=== PATIENT | female | born 1960 | race Caucasian/White ===

== ENCOUNTER 2017-11-13 22:20 | Emergency (ER) | payer MEDICAID ==
[~2017-11-13] VITALS: Ht 157.5 cm; Wt 69.9 kg
[2017-11-13 22:23] VITALS: BP_SYST 145
[2017-11-13] MEDS ORDERED: ASPIRIN 81 MG TAB.CHEW PO ONE (22:45)
[2017-11-13 23:08] LABS: INR 0.9 (0.8-1.2); PROTHROMBIN TIME 9.2 SECS (9.5-12.5)
[2017-11-13 23:09] LABS: BASOPHILS # (AUTO) 0.1 K/uL (0.0-0.2); BASOPHILS % (AUTO) 0.6 % (0.0-2.0); EOSINOPHILS # (AUTO) 0.4 K/uL (0.0-0.4); EOSINOPHILS % (AUTO) 4.9 % (0.0-4.0); HEMATOCRIT 40.1 % (36-48); HEMOGLOBIN 13.4 g/dL (12.0-16.0); LYMPHOCYTES % (AUTO) 48.7 % (20.5-51.5); MEAN CORPUSCULAR HEMOGLOBIN 32 pg (27-31); MEAN CORPUSCULAR HGB CONC 33 % (32-36); MEAN CORPUSCULAR VOLUME 96 fL (79.0-98.0); MONOCYTES # (AUTO) 0.7 K/uL (0.0-1.0); MONOCYTES % (AUTO) 7.9 % (1.7-9.3); NEUTROPHILS # (AUTO) 3.2 K/uL (1.8-7.7); NEUTROPHILS % (AUTO) 37.9 % (40.0-70.0); PLATELET COUNT (AUTO) 247 K/uL (130-430); RED BLOOD CELL COUNT(AUTO) 4.19 MIL/uL (4.2-6.2); RED CELL DISTRIBUTION WIDTH 11.6 % (9.0-15.0); WHITE BLOOD COUNT (AUTO) 8.4 K/uL (4.8-10.8)
[2017-11-13 23:11] LABS: CALCIUM 9.8 mg/dL (8.4-11.0); CREATININE 0.9 mg/dL (0.55-1.30); POTASSIUM 3.7 mmol/L (3.5-5.1)
[2017-11-13 23:15] LABS: ALBUMIN 4.5 g/dL (3.4-4.8); TOTAL BILIRUBIN 0.2 mg/dL (0.0-1.0)
[2017-11-13 23:28] LABS: BILIRUBIN,URINE NEGATIVE (NEGATIVE); BLOOD, URINE NEGATIVE (NEGATIVE); CLARITY/URINE CLEAR (CLEAR); COLOR,URINE YELLOW (YELLOW); GLUCOSE,URINE NEGATIVE (NEGATIVE); KETONES,URINE NEGATIVE (NEGATIVE); LEUKOCYTE ESTERASE ,URINE 1+ (NEGATIVE); NITRITE, URINE NEGATIVE (NEGATIVE); PROTEIN URINE NEGATIVE (NEGATIVE); UROBILINOGEN,URINE 0.2 (0.2-1.0)
[2017-11-13 23:33] LABS: BACTERIA,URINE FEW /HPF (None Seen); RBC,URINE 0-3 /HPF (0-3)
[2017-11-14] MEDS ORDERED: KETOROLAC TROMETHAMINE 30 MG VIAL IVP ONE (00:15)
[2017-11-14] MEDS ORDERED: SULFAMETHOXAZOLE/TRIMETHOPR DS 1 TABLET PO ONE (01:00)
[2017-11-14 01:21] VITALS: BP_SYST 105
== END 2017-11-14 01:21 | disposition home or self-care (01) ==
LOC: SED 22:20
DX: R07.89 Other chest pain (principal); N39.0 Urinary tract infection, site not specified; I10 Essential (primary) hypertension
CPT/HCPCS: 36415; 71045; 80053; 81000; 83880; 84484; 85025; 85610; 85730; 87086; 96374; 99285; J1885

== ENCOUNTER 2018-05-14 00:47 | Emergency (ER) | payer MEDICAID ==
[~2018-05-14] VITALS: Ht 157.5 cm; Wt 68.0 kg
[2018-05-14 01:00] VITALS: BP_SYST 116
--- NOTE | 2018-05-14 01:08 | NUR ---
Patient to ER bed 5 to gown for evaluation. Side rails up. Report given to Alla IRBY.
--- NOTE | 2018-05-14 01:10 | NUR ---
Pt is AAOx4 and ambulatory. Pt states that this evening she passed out, did not hit her head, but felt a little disoriented after this episode. Pt also c/o nausea and lightheadedness today and felt nauseous after taking trazadone this evening. Pt denies any pain or discomfort at this time. Will continue to monitor pt.
--- NOTE | 2018-05-14 01:14 | NUR ---
ED MD Stahl at bedside for medical evaluation.
--- NOTE | 2018-05-14 01:25 | NUR ---
# 20 gauge angiocath placed to left AC. Use of asceptic technique. Opsite placed over site. Blood return noted. Blood for lab drawn from site. Flushed with 10 cc of normal saline. No evidence of infiltration noted. Patient tolerated well.
[2018-05-14] MEDS ORDERED: NACL 0.9% 1,000 ML IV ONE (02:00)
[2018-05-14] MEDS ORDERED: KETOROLAC TROMETHAMINE 30 MG VIAL IVP ONE (02:00)
[2018-05-14] MEDS ORDERED: ONDANSETRON HCL 4 MG/2 ML VIAL IVP ONE (02:00)
[2018-05-14 02:20] LABS: CALCIUM 8.9 mg/dL (8.4-11.0); CREATININE 0.88 mg/dL (0.55-1.30); POTASSIUM 3.7 mmol/L (3.5-5.1)
[2018-05-14 02:26] LABS: ALBUMIN 4.1 g/dL (3.4-4.8); TOTAL BILIRUBIN 0.4 mg/dL (0.0-1.0)
[2018-05-14 02:32] LABS: BASOPHILS % (AUTO) 0.5 % (0.0-2.0); EOSINOPHILS # (AUTO) 0.1 K/uL (0.0-0.4); EOSINOPHILS % (AUTO) 1.5 % (0.0-4.0); HEMATOCRIT 34.5 % (36-48); HEMOGLOBIN 11.8 g/dL (12.0-16.0); LYMPHOCYTES % (AUTO) 24.9 % (20.5-51.5); MEAN CORPUSCULAR HEMOGLOBIN 33 pg (27-31); MEAN CORPUSCULAR HGB CONC 34 % (32-36); MEAN CORPUSCULAR VOLUME 97 fL (79.0-98.0); MONOCYTES # (AUTO) 0.6 K/uL (0.0-1.0); MONOCYTES % (AUTO) 6.9 % (1.7-9.3); NEUTROPHILS # (AUTO) 5.4 K/uL (1.8-7.7); NEUTROPHILS % (AUTO) 66.2 % (40.0-70.0); PLATELET COUNT (AUTO) 228 K/uL (130-430); RED BLOOD CELL COUNT(AUTO) 3.54 MIL/uL (4.2-6.2); RED CELL DISTRIBUTION WIDTH 11.9 % (9.0-15.0); WHITE BLOOD COUNT (AUTO) 8.1 K/uL (4.8-10.8)
--- NOTE | 2018-05-14 04:55 | NUR ---
Patient placed for discharged pending negative CAT scan result. Informed by radiology STAT rad down at this time. No ETA on result per radiology. ED MD Stahl made aware.
--- NOTE | 2018-05-14 05:40 | NUR ---
ED MD Stahl at bedside reassessing patient.
[2018-05-14 05:55] VITALS: BP_SYST 121
--- NOTE | 2018-05-14 05:55 | NUR ---
Patient given written and verbal discharge instructions and verbalizes understanding. ER MD discussed with patient the results and treatment provided. Patient in stable condition. ID arm band removed. Patient educated on pain management and to follow up with PMD. Pain Scale 0/10. Opportunity for questions provided and answered. Medication side effect fact sheet provided.
== END 2018-05-14 05:55 | disposition home or self-care (01) ==
LOC: SED 00:47
DX: T67.5XXA Heat exhaustion, unspecified, initial encounter (principal); E86.0 Dehydration; R55 Syncope and collapse; D64.9 Anemia, unspecified; I10 Essential (primary) hypertension; X30.XXXA Exposure to excessive natural heat, initial encounter; Y93.89 Activity, other specified; Y92.89 Other specified places as the place of occurrence of the external cause; Y99.8 Other external cause status
CPT/HCPCS: 36415; 70450; 80053; 85025; 93005; 96361; 96374; 96375; 99285; J1885; J2405; J7030